=== PATIENT | male | born 1965 | race Caucasian/White ===

== ENCOUNTER 2018-01-05 14:22 | Emergency (ER) | payer OTHER ==
[2018-01-05] MEDS ORDERED: Ketorolac Tromethamine 30 MG/ML VIAL ONE (14:50)
[2018-01-05] MEDS ORDERED: Sodium Chloride 0.9% 1,000 ML ONE (14:50)
[2018-01-05 15:18] LABS: Bilirubin Negative (Negative); Blood, Urine Negative (Negative); Clarity Clear (Clear); Glucose, Urine (Dipstick) Negative (Negative); Leukocyte Negative (Negative); Nitrite Negative (Negative); Protein, Urine (Dipstick) 30 mg/dL (Neg-Trace); Specific Gravity, Urine 1.025 (1.005-1.030); Urobilinogen 0.2 mg/dL (0.2-1.0); pH, Urine 5.5 (5.0-9.0)
[2018-01-05 15:47] LABS: #Basophils 0.1 thou/uL (0.0-0.2); #Eosinphils 0.1 thou/uL (0.0-0.7); #Lymphocytes 3.3 thou/uL (1.20-3.40); %Basophils 0.9 % (0.0-1.0); %Eosinophils 0.7 % (0.0-10.0); %Lymphocytes 26.5 % (21.0-51.0); %Monocytes 7.8 % (0.0-10.0); %Neutrophils 64.1 % (42.0-75.0); Hemoglobin 13.2 g/dL (14.0-18.0); Mean Corpuscular Hemoglobin 31.2 pg (27.0-31.0); Mean Corpuscular Volume 94.7 fl (80.0-94.0); Mean Platelet Volume 6.1 fL (7.4-10.4); Platelet Count 303 thou/uL (130-400); RBC Distribution Width 11.7 % (11.5-14.5); Red Blood Cell (RBC) Count 4.21 mill/uL (4.70-6.10); White Blood Cell (WBC) Count 12.5 thou/uL (4.8-10.8)
[2018-01-05 15:53] LABS: Bacteria/HPF None Seen HPF (None Seen); RBC/HPF 0-3 HPF (0-3); Squamous Epithelial 0-3 HPF (0-3); WBC/HPF 0-3 HPF (0-3)
--- NOTE | 2018-01-05 15:58 | CT ---
CT ABDOMEN AND PELVIS NONCONTRAST: HISTORY: Left flank pain. FINDINGS: The left renal collecting system and ureter are mildly distended without focal stone apparent. There is subtle stranding within the fat around the left kidney and ureter. Right renal collecting system and ureter and the urinary bladder are decompressed without stone appar ent. Lack of contrast limits evaluation for other abnormalities. Gallbladder is surgically absent. Commo n duct diffusely hypodense. IMPRESSION: 1. Mild left hydroureteral nephrosis without apparent cause. Subtle stranding within the fat around the left kidney and ureter also suggests an acute process. Considerations would include a recently passed stone, not seen within the urinary bladder, or pyelonephritis. Cause is not evident. Clinica l correlation regarding other signs and symptoms of a recently passed stone is required. 2. Hepatosteatosis. POS: JC
[2018-01-05 16:03] LABS: ALT (SGPT) 61 U/L (8-55); AST (SGOT) 30 U/L (5-34); Albumin 4.3 g/dL (3.5-5.0); Alkaline Phosphatase 65 U/L (40-150); Anion Gap 13 mmol/L (10-20); BUN (Urea Nitrogen) 15 mg/dL (8.9-20.6); Bilirubin, Total 0.4 mg/dL (0.2-1.2); Calc. Creatinine Clearance 0 mL/min (70-130); Calcium 9.3 mg/dL (7.8-10.44); Carbon Dioxide 28 mmol/L (22-29); Chloride 96 mmol/L (98-107); Estimated GFR-MDRD Greater than 90; Globulin 3.6 g/dL (2.4-3.5); Glucose 121 mg/dL (70-105); Potassium 3.1 mmol/L (3.5-5.1); Protein, Total 7.9 g/dL (6.0-8.3); Sodium 134 mmol/L (136-145)
[2018-01-05] MEDS ORDERED: Potassium Chloride 20 MEQ TAB ONE (16:27)
== END 2018-01-05 16:30 | disposition home or self-care (01) ==
LOC: NAV ERS 14:22
DX: N13.30 Unspecified hydronephrosis (principal); E87.6 Hypokalemia; I10 Essential (primary) hypertension; F41.9 Anxiety disorder, unspecified; F32.9 Major depressive disorder, single episode, unspecified; F17.220 Nicotine dependence, chewing tobacco, uncomplicated; Z79.899 Other long term (current) drug therapy
CPT/HCPCS: 74176; 80053; 81003; 81015; 85025; 87086; 96361; 96374; J1885; J7050